=== PATIENT | female | born 1975 | race Caucasian/White ===

== ENCOUNTER 2018-01-11 02:43 | Emergency (ER) | payer BC ==
[~2018-01-11] VITALS: Ht 170.2 cm; Wt 158.8 kg
[~2018-01-11 02:43] MED LIST: IBUPROFEN 600600 M1 PO; METROGEL-VAGINA70 GM VG; SPACERADULT; TUMS PO
[2018-01-11 03:45] LABS: ABSOLUTE BASOPHILS 0.1 thou/uL (0.0-0.2); ABSOLUTE EOSINOPHILS 0.2 thou/uL (0.0-0.7); ABSOLUTE LYMPHOCYTES 1.5 thou/uL (0.8-5.3); ABSOLUTE MONOCYTES 0.8 thou/uL (0.0-1.2); ABSOLUTE NEUTROPHILS 9.6 thou/uL (1.6-8.1); BASOPHILS 0.5 %; EOSINOPHILS 1.8 %; HEMATOCRIT 33.2 % (37.0-47.0); HEMOGLOBIN 10.2 gm/dL (12.0-15.0); LYMPHOCYTES 12.7 %; MCH 20.9 pg (26.0-34.0); MCHC 30.7 g/dL (28.0-37.0); MONOCYTES 6.2 %; MPV 8.4 fl. (7.2-11.1); NUCLEATED RBCS 0 /100WBC; PLATELET COUNT* 333 thou/uL (150-400); POLYS 78.8 %; RBC 4.88 mil/uL (4.20-5.00); RDW-CV 17.9 % (10.5-14.5); WBC 12.2 thou/uL (4.0-11.0)
[2018-01-11 03:57] LABS: INR 1.1; PROTIME 10.5 Seconds (9.20-11.50)
[2018-01-11 04:05] LABS: ANION GAP 9 mmol/L (7-16); BUN 12 mg/dL (7-18); CALCIUM 8.8 mg/dL (8.5-10.1); CHLORIDE 107 mmol/L (98-107); CO2 25 mmol/L (21-32); CREATININE 0.9 mg/dL (0.6-1.3); GLUCOSE 127 mg/dL (70-99); POTASSIUM 4.1 mmol/L (3.5-5.1); SODIUM 141 mmol/L (136-145)
[2018-01-11 04:09] LABS: ALBUMIN 3.1 g/dL (3.4-5.0); ALKALINE PHOSPHATASE 142 U/L (46-116); LIPASE 140 U/L (73-393); NT-PRO BRAIN NAT PEPTIDE 20 pg/mL (<300); SGOT 13 U/L (15-37); SGPT 23 U/L (30-65); TOTAL BILIRUBIN 0.2 mg/dL (<0.1-1.0); TOTAL PROTEIN 6.8 g/dL (6.4-8.2); TROPONIN-I LEVEL <0.06 ng/mL (<0.06)
[2018-01-11 04:19] LABS: URINE BILIRUBIN NEGATIVE (Negative); URINE BLOOD NEGATIVE (Negative); URINE CLARITY CLEAR; URINE COLOR YELLOW; URINE GLUCOSE-RANDOM NEGATIVE (Negative); URINE KETONES NEGATIVE (Negative); URINE LEUKOCYTES-REFLEX NEGATIVE (Negative); URINE NITRITE-REFLEX NEGATIVE (Negative); URINE PROTEIN NEGATIVE (Negative); URINE UROBILINOGEN 0.2 E.U./dl (0.2-1.0)
[2018-01-11] MEDS ORDERED: HYDROCODONE-AP1 EAC6 PO (04:40)
[2018-01-11] MEDS ORDERED: CARAFATE 1 GM TA1 GM PO (04:40)
[2018-01-11] MEDS ORDERED: PEPCID20 MG PO (04:40)
[2018-01-11 05:27] LABS: PLATELET ESTIMATE ADEQUATE
[2018-01-11 05:28] VITALS: BP 112/49
[2018-01-11 05:28] LABS: HYPOCHROMASIA 2+; OVALOCYTES 1+
[2018-01-11 05:29] LABS: ANISOCYTOSIS 2+; MICROCYTES 2+; POIKILOCYTOSIS 1+
--- NOTE | 2018-01-11 10:01 | EKG ---
[place] [address] ELECTROCARDIOGRAM REPORT Name: JAZLYN BAEZ Room: [facility]#: [id number] Admission: 01/11/18 Attend Phys: Discharge: 01/11/18 Date of : 77 Report #: [id number] THIS REPORT FOR: //name// [facility] ED Test Date: 2018-01-11 Test Time: 02:49:48 Pat Name: JAZLYN BAEZ Department: Room: Gender: F [employer] Furniture: CAYLA Bhardwaj : 1975 Requested By: Brianda Sue Order Number: [id number] MD: Tono Conway Measurements Intervals [place] Rate: 139 P: 25 DC: 123 QRS: 4 QRSD: 77 T: -27 QT: 331 QTc: 504 Interpretive Statements Sinus tachycardia Probable left atrial enlargement Low voltage, precordial leads Borderline repolarization abnormality Borderline prolonged QT interval Baseline wander in lead(s) I,II,aVR,aVF,V1 Compared to ECG 05/26/2016 08:56:51 Low QRS voltage now present Sinus rhythm no longer present Electronically Signed On 01-11-2018 10:00:49 CDT by Tono Conway [email or web address] <ELECTRONICALLY SIGNED> By: Tono Conway MD, FACC 01/11/18 1000 [id number] Tono Conway MD, FAC /EPI
== END 2018-01-11 05:39 | disposition home or self-care (01) ==
LOC: M.ERS 02:43
PROVIDERS: Emergency Medicine
DX: R12 Heartburn (principal); F41.0 Panic disorder [episodic paroxysmal anxiety]; F17.210 Nicotine dependence, cigarettes, uncomplicated; Z90.89 Acquired absence of other organs; Z98.890 Other specified postprocedural states; Z88.8 Allergy status to other drugs, medicaments and biological substances; Z88.5 Allergy status to narcotic agent; Z88.1 Allergy status to other antibiotic agents

== ENCOUNTER → 2018-11-20 | Outpatient (CLI) | payer BC ==
[~2018-11-20] MED LIST changes: +CARAFATE 1 GM TA1 GM PO; +HYDROCODONE-AP1 EAC6 PO; +PEPCID20 MG PO
== END ==
LOC: M.ULTRA 11-15 12:35
DX: N85.2 Hypertrophy of uterus (principal); R10.13 Epigastric pain; R07.9 Chest pain, unspecified; R93.89 Abnormal findings on diagnostic imaging of other specified body structures